=== PATIENT | female | born 1990 | race American Indian/Alaskan Native ===

== ENCOUNTER 2017-02-11 22:32 | Inpatient (IN) | payer BC ==
--- NOTE | 2017-02-11 23:04 | Emergency Department Report ---
ED Allergic Reaction HPI - General Chief complaint: Allergic Reaction Stated complaint: SWELLING THROUGHOUT BODY Time Seen by Provider: 02/11/17 23:00 Source: patient Mode of arrival: Ambulatory Limitations: No Limitations - History of Present Illness Initial Comments: Patient is a 26-year-old female who presents to the ER with lower lip swelling 5 hours. Patient states she didn't have an random body hives since 01/31/2017. She has been taking Benadryl on a daily basis some relief. But her lip began to swell at 1530 today. She denies shortness of breath and difficulty breathing. Patient denies chest pain and fever. She denies any new medications. Patient denies any change in soaps or detergents. . patient denies taking any prescription medications or [id number] medications besides Benadryl at this time. MD Complaint: allergic reaction, hives, facial swelling -: Gradual Symptoms: itching, facial swelling, lip swelling Severity: severe Treatment Prior to Arrival: benadryl Previous Allergy History: none - Related Data Previous Rx's Medication Instructions Recorded Last Taken Type HYDROcodone/APAP 10-325 [[place] 1 each PO Q6HR PRN #20 tablet 09/25/14 Unknown Rx 10/325] metroNIDAZOLE [Flagyl TAB] 500 mg PO Q12HR #14 tab 12/02/14 Unknown Rx Acetaminophen/Codeine [Tylenol #3] 1 tab PO Q6H PRN #20 tab 08/16/15 Unknown Rx Cyclobenzaprine [Flexeril 10 MG 10 mg PO Q8H PRN #21 tablet 08/16/15 Unknown Rx TAB] Ibuprofen [Motrin] 600 mg PO Q8H PRN #40 tablet 08/16/15 Unknown Rx Allergies Allergy/AdvReac Type Severity Reaction Status Date / Time No Known Allergies Allergy Verified 02/11/17 22:42 ED Review of Systems ROS: Stated complaint: SWELLING THROUGHOUT BODY Other details as noted in HPI Comment: All other systems reviewed and negative Constitutional: no symptoms reported Eyes: as per HPI ENT: as per HPI Respiratory: no symptoms reported, see HPI Cardiovascular: as per HPI Endocrine: no symptoms reported Gastrointestinal: as per HPI Genitourinary: as per HPI Musculoskeletal: as per HPI Skin: as per HPI Neurological: as per HPI Psychiatric: as per HPI Hematological/Lymphatic: as per HPI ED Past Medical Hx - Past Medical History Previous Medical History?: Yes Additional medical history: Panda's Palsy - Social History Smoking Status: Current Every Day Smoker Substance Use Type: Alcohol, Marijuana - Medications Home Medications: Home Medications Medication Instructions Recorded Confirmed Last Taken Type HYDROcodone/APAP 10-325 [[place] 1 each PO Q6HR PRN #20 tablet 09/25/14 Unknown Rx 10/325] metroNIDAZOLE [Flagyl TAB] 500 mg PO Q12HR #14 tab 12/02/14 Unknown Rx Acetaminophen/Codeine [Tylenol #3] 1 tab PO Q6H PRN #20 tab 08/16/15 Unknown Rx Cyclobenzaprine [Flexeril 10 MG 10 mg PO Q8H PRN #21 tablet 08/16/15 Unknown Rx TAB] Ibuprofen [Motrin] 600 mg PO Q8H PRN #40 tablet 08/16/15 Unknown Rx ED Physical Exam - General Limitations: No Limitations General appearance: alert, in no apparent distress - Head Head exam: Present: atraumatic, normocephalic - Eye Eye exam: Present: normal appearance - ENT ENT exam: Present: mucous membranes moist, other (lower lip swelling noted) - Neck Neck exam: Present: normal inspection - Respiratory Respiratory exam: Present: normal lung sounds bilaterally. Absent: respiratory distress - Cardiovascular Cardiovascular Exam: Present: regular rate, normal rhythm. Absent: systolic murmur, diastolic murmur, rubs, gallop - GI/Abdominal GI/Abdominal exam: Present: soft, normal bowel sounds - Extremities Exam Extremities exam: Present: normal inspection - Back Exam Back exam: Present: normal inspection - Neurological Exam Neurological exam: Present: alert, oriented X3 - Psychiatric Psychiatric exam: Present: normal affect, normal mood - Skin Skin exam: Present: warm, dry, intact, normal color. Absent: rash ED Course Vital Signs 02/11/17 02/11/17 22:42 23:16 Temperature 99.1 F 98.7 F Pulse Rate 89 75 Respiratory 18 18 Rate Blood Pressure 150/93 Blood Pressure 131/72 [Left] O2 Sat by Pulse 99 99 Oximetry ED Medical Decision Making - Lab Data Result diagrams: 02/11/17 23:13 02/11/17 23:13 - Medical Decision Making Will consult hospitalist for admission for observation for angioedema. Hospitalist agreed to admit - Differential Diagnosis allergic rxn,. lip swelling. angioedema Critical care attestation.: If time is entered above; I have spent that time in minutes in the direct care of this critically ill patient, excluding procedure time. ED Disposition Clinical Impression: Angioedema, Lip swelling Disposition: OP ADMIT IP TO THIS HOSP Is pt being admited?: Yes Does the pt Need Aspirin: No Condition: Serious Time of Disposition: 00:09
[2017-02-11 23:25] LABS: Basophils % (Auto) 0.4 % (0.0-1.8); Eosinophils % (Auto) 0.6 % (0.0-4.3); Hematocrit 35.2 % (30.3-42.9); Hemoglobin 11.7 gm/dl (10.1-14.3); Mean Corpuscular HGB Conc 33 % (30-34); Mean Corpuscular Hemoglobin 30 pg (28-32); Mean Corpuscular Volume 91 fl (79-97); Platelet Count 352 K/mm3 (140-440); Red Blood Count 3.86 M/mm3 (3.65-5.03); Red Cell Distribution Width 13.8 % (13.2-15.2); White Blood Count 9.9 K/mm3 (4.5-11.0)
[2017-02-11 23:56] LABS: Alanine Aminotransferase 13 units/L (7-56); Albumin 3.8 g/dL (3.9-5); Albumin/Globulin Ratio 1.4 %; Alkaline Phosphatase 59 units/L (35-129); Anion Gap 18 mmol/L; BUN/Creatinine Ratio 17; Blood Urea Nitrogen 10 mg/dL (7-17); Calcium 9.1 mg/dL (8.4-10.2); Carbon Dioxide 25 mmol/L (22-30); Chloride 100.9 mmol/L (98-107); Glucose 95 mg/dL (65-100); Potassium 4.1 mmol/L (3.6-5.0); Sodium 140 mmol/L (137-145); Total Protein 6.6 g/dL (6.3-8.2)
[2017-02-12] MEDS ORDERED: BENADRYL IV PRN (00:54)
[2017-02-12] MEDS ORDERED: ZOFRAN IV PRN (00:54)
[2017-02-12] MEDS ORDERED: NACL 0.45% 1000 ML 1,000 ML IV SCH (01:00)
[2017-02-12] MEDS: PEPCID IV SCH ×2 (01:48→10:01)
--- NOTE | 2017-02-12 01:58 | History and Physical Report ---
History of Present Illness Date of examination: 02/12/17 Date of admission: 02/12/17 00:54 History of present illness: 26 year old woman with no medical history comes to ER because since she has hives over various parts of her body everyday, responsive to benadryl. Today she developed itching all over and later notice her lower lips became tight. Her lip increase in size prompting her to come to the ER. Denies new food, facial or skin products. Able to speak in full sentences, control her saliva Review Of Systems: Constitutional: no weight loss Ears, eyes, nose, mouth and throat: no nasal congestion, no nasal discharge, no sinus pressure, blurry vision, diplopia Neck: No neck pain or rigidity. Cardiovascular: no chest pain, orthopnea, palpitations Respiratory: No cough, SOB Gastrointestinal: no abdominal pain, hematochezia Genitourinary : no dysuria, frequency , hematuria Musculoskeletal: no muscle ache Integumentary: no rash, no pruritis Neurological: no parathesias, focal weakness Endocrine: no cold or heat intolerance, no polyuria or polydipsia Hematologic/Lymphatic: no easy bruising, no easy bleeding, no gland swelling Allergic/Immunologic: no urticaria, no angioedema. PAST MEDICAL HISTORY:NONE PAST SURGICAL HISTORY: none FAMILY HISTORY: Hypertension SOCIAL HISTORY: Denies alcohol, tobacco, drugs Medications and Allergies Allergies Allergy/AdvReac Type Severity Reaction Status Date / Time No Known Allergies Allergy Verified 02/11/17 22:42 Home Medications Medication Instructions Recorded Confirmed Last Taken Type Famotidine [Pepcid] 10 mg PO BID #10 tablet 02/12/17 Unknown Rx methylPREDNISolone [Medrol Dose 1 dose PO DAILY #1 pack 02/12/17 Unknown Rx [place]] Active Meds: Active Medications Diphenhydramine HCl (Benadryl) 25 mg IV Q6H PRN PRN Reason: Itching Famotidine (Pepcid) 20 mg IV BID VALDEZ Last Admin: 02/12/17 01:48 Dose: 20 mg Sodium Chloride (Nacl 0.45% 1000 Ml) 1,000 mls @ 75 mls/hr IV DIRECT VALDEZ Last Admin: 02/12/17 01:51 Dose: 75 mls/hr Methylprednisolone Sodium Succinate (Solu-Medrol) 125 mg IV Q6H VALDEZ Ondansetron HCl (Zofran) 4 mg IV Q8H PRN PRN Reason: N/V unrelieved by Reglan Exam - Physical Exam Narrative exam: Gen. appearance: Patient lying in bed in no acute distress HEENT: Normocephalic/atraumatic, pupils equal round reactive to light, extra alkaline movement intact, no scleral icterus, no JVD or thyromegaly or nodule, neck is supple, mucous membrane moist, no erythema or exudate Heart: S1-S2, regular rate and rhythm Lungs:clear bilateral breathing comfortable Abdomen: Positive bowel sounds, nontender, nondistended, no organomegaly Extremities: No edema, cyanosis, clubbing Neuro:: Oriented 3 , cranial nerves II-12 intact, speech, motor intact Skin: No rash, nodules, warm dry - Constitutional Vitals: Temp Pulse Resp BP Pulse Ox 98.7 F 75 20 147/78 98 02/11/17 23:16 02/11/17 23:16 02/12/17 00:18 02/12/17 00:15 02/12/17 00:18 Results - Labs CBC & Chem 7: 02/11/17 23:13 02/11/17 23:13 Labs: Abnormal lab results 02/11/17 02/11/17 Range/Units 23:13 23:13 [place] % (Auto) 7.5 H (0.0-7.3) % Creatinine 0.6 L (0.7-1.2) mg/dL Albumin 3.8 L (3.9-5) g/dL Assessment and Plan Assessment Angioedema Elevated blood pressure Obesity Admit to medicine Stsrt iv steroids, benadryl, pepcid Iv hydralazine, dvt prophalaxis
[2017-02-12] MEDS ORDERED: APRESOLINE IV PRN (04:45)
[2017-02-12 13:27] VITALS: BP 118/61
--- NOTE | 2017-02-12 14:32 | Discharge Summary ---
Providers - Providers Date of Admission: 02/12/17 00:54 Attending physician: TAWNY CARTER MD Primary care physician: TECHNICAL SUPPORT CONSULTANT Hospitalization Reason for admission: angioedema Condition: Serious Hospital course: 26 year old woman with no medical history comes to ER because since thanksgiving she hashives over various parts of her body everyday, responsive to benadryl. Today she developed itching all over and later notice her lower lips became tight. Her lip increase in size prompting her to come to the ER. Denies new food, facial or skin products. Able to speak in full sentences, control her saliva. Patient was seen and examined this am, notes improvement of symptoms and stabloe for discharge. I have advised and recommended allergy testing for the patient. she was discharged on steroids, PPI. family at bedside. Weightloss counselling provided. patient will monitor and keep a BP diary. weight managemnt discussed in detail and she verbalized understanding Angioedema Elevated blood pressure Morbid obesity Disposition: DC-01 TO HOME OR SELFCARE Time spent for discharge: 35 mins Core Measure Documentation - Palliative Care Palliative Care/ Comfort Measures: Not Applicable - Core Measures Any of the following diagnoses?: none - VTE Discharge Requirements Deep Vein Thrombosis/Pulmonary Embolism Present on Admission: No Exam - Constitutional Vitals: Temp Pulse Resp BP Pulse Ox 98.3 F 78 20 118/61 96 02/12/17 13:26 02/12/17 13:26 02/12/17 13:26 02/12/17 13:26 02/12/17 13:26 General appearance: Present: no acute distress, well-nourished, obese - EENT Eyes: Present: PERRL, EOM intact ENT: hearing intact, clear oral mucosa, dentition normal - Neck Neck: Present: supple, normal ROM - Respiratory Respiratory effort: normal Respiratory: bilateral: CTA - Cardiovascular Rhythm: regular Heart Sounds: Present: S1 & S2. Absent: systolic murmur, diastolic murmur - Extremities Extremities: no ischemia, pulses intact, pulses symmetrical Peripheral Pulses: within normal limits - Abdominal General gastrointestinal: Present: soft, non-tender, non-distended, normal bowel sounds - Integumentary Integumentary: Present: clear, warm, dry - Musculoskeletal Musculoskeletal: strength equal bilaterally - Psychiatric Psychiatric: appropriate mood/affect, intact judgment & insight, cooperative - Neurologic Neurologic: CNII-XII intact, moves all extremities, gait normal - Allied Health Allied health notes reviewed: nursing Plan Activity: advance as tolerated, fall precautions Diet: regular Additional Instructions: must follow with an data analytics chief scientist Follow up with: [facility] [Provider Group] - 7 Days PRIMARY CARE, [Primary Care Provider] - 3-5 Days Forms: Work/School Release Form Prescriptions: Famotidine [Pepcid] 10 mg PO BID #10 tablet methylPREDNISolone [Medrol Dose [place]] 1 dose PO DAILY #1 pack
== END 2017-02-12 16:20 | disposition home or self-care (01) | DRG 916 ==
LOC: ED 22:32 → 4A 02-12 00:54
PROVIDERS: ADMIT Internal Medicine; ATTEND Internal Medicine
DX: T78.3XXA Angioneurotic edema, initial encounter (principal); Z68.43 Body mass index [BMI] 50.0-59.9, adult; E66.01 Morbid (severe) obesity due to excess calories; F17.200 Nicotine dependence, unspecified, uncomplicated; F12.90 Cannabis use, unspecified, uncomplicated; Z82.49 Family history of ischemic heart disease and other diseases of the circulatory system; R03.0 Elevated blood-pressure reading, without diagnosis of hypertension
CPT/HCPCS: 36415; 80053; 85025; 96374; 99406; J2930

== ENCOUNTER 2019-08-08 20:53 | Emergency (ER) | payer BC, OTHER ==
[2019-08-08] MEDS ORDERED: ONDANSETRON 4 MG/2 ML INJ IV ONE (21:03)
[2019-08-08] MEDS ORDERED: MORPHINE 4 MG/1 ML INJ IV ONE ×2 (21:03→23:02)
[2019-08-08] MEDS ORDERED: SODIUM CHLORIDE 0.9% 1000 ML 1,000 ML IV ONE (21:03)
[2019-08-08] MEDS ORDERED: ONDANSETRON 4 MG/2 ML INJ ONE (21:04)
[2019-08-08] MEDS ORDERED: MORPHINE 4 MG/1 ML INJ ONE (21:05)
[2019-08-08] MEDS ORDERED: SODIUM CHLORIDE 0.9% 1000 ML 1,000 ML ONE (21:05)
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
[2019-08-08 21:20] LABS: Hematocrit 35.3 % (30.3-42.9); Hemoglobin 12.1 gm/dl (10.1-14.3); Mean Corpuscular HGB Conc 34 % (30-34); Mean Corpuscular Volume 93 fl (79-97); Platelet Count 339 K/mm3 (140-440); Red Blood Count 3.81 M/mm3 (3.65-5.03); Red Cell Distribution Width 14.6 % (13.2-15.2)
[2019-08-08 21:32] LABS: INR 1.1 (0.87-1.13); Partial Thromboplastin Time 29.6 Sec. (24.2-36.6)
[2019-08-08 21:37] LABS: Alanine Aminotransferase 12 units/L (7-56); Albumin 4.1 g/dL (3.9-5); BUN/Creatinine Ratio 16; Blood Urea Nitrogen 11 mg/dL (7-17); Calcium 9.3 mg/dL (8.4-10.2); Hemolysis Index 7
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
[2019-08-08 22:21] LABS: RBC Morphology Normal; Total Cells Counted 100
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
[2019-08-09 00:26] VITALS: BP 106/70
== END 2019-08-09 00:25 | disposition short-term general hospital (02) ==
LOC: ED 20:53
DX: S87.82XA Crushing injury of left lower leg, initial encounter (principal); R10.32 Left lower quadrant pain; I10 Essential (primary) hypertension; F17.200 Nicotine dependence, unspecified, uncomplicated; Z79.899 Other long term (current) drug therapy; V03.90XA Pedestrian on foot injured in collision with car, pick-up truck or van, unspecified whether traffic or nontraffic accident, initial encounter; Y92.410 Unspecified street and highway as the place of occurrence of the external cause; Y93.89 Activity, other specified; Y99.8 Other external cause status
CPT/HCPCS: 36415; 71045; 72170; 73552; 73562; 73590; 73610; 73630; 74177; 80053; 82550; 83735; 84702; 85007; 85025; 85610; 85730; 96374; 96375; 96376; 99285; J2270; J2405; J7030; Q9967

== ENCOUNTER 2021-02-03 02:57 | Emergency (ER) | payer OTHER ==
[2021-02-03] MEDS ORDERED: HYDROcodone/ACETAMINOPHEN 5-325 MG TAB PO ONE (03:49)
[2021-02-03] MEDS ORDERED: TETANUS,DIPH,PERTUSS(ACELL) VACCINE 0.5 ML SYRINGE IM ONE (03:49)
[2021-02-03 04:26] LABS: HCG Qualitative,Urine Negative (Negative)
[2021-02-03] MEDS ORDERED: LIDOCAINE VISCOUS 2% 15 ML ORAL LIQD TP ONE (05:15)
[2021-02-03] MEDS ORDERED: cephALEXin 500 MG CAP PO ONE (05:15)
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
[2021-02-03 06:45] VITALS: BP 135/75
== END 2021-02-03 06:10 | disposition home or self-care (01) ==
LOC: ED 02:57
DX: T14.8XXA Other injury of unspecified body region, initial encounter (principal); S71.011A Laceration without foreign body, right hip, initial encounter; F17.200 Nicotine dependence, unspecified, uncomplicated; V43.92XA Unspecified car occupant injured in collision with other type car in traffic accident, initial encounter; Y93.89 Activity, other specified; Y92.89 Other specified places as the place of occurrence of the external cause; Y99.8 Other external cause status
CPT/HCPCS: 81025; 90471; 90715; 99284